=== PATIENT | male | born 1980 | race Caucasian/White ===

== ENCOUNTER 2018-02-13 13:59 | Emergency (ER) | payer SELFPAY ==
[2018-02-13 14:15] VITALS: BP 145/90
[2018-02-13] MEDS ORDERED: DIPH/PERTUSS(ACELL)/TETANUS VAC/PF 0.5 ML SYR (>=10YO) IM ONE (14:36)
[2018-02-13] MEDS ORDERED: CEFAZOLIN 2 GM/D5W RTU 2 GM/50 ML RTUPB IV ONE (14:36)
[2018-02-13] MEDS ORDERED: MORPHINE SULFATE 10 MG/ML INJ IV ONE ×2 (14:37→16:14)
[2018-02-13] MEDS ORDERED: ONDANSETRON HCL INJ/PF 4 MG/2 ML SDV IV ONE (14:37)
--- NOTE | 2018-02-13 14:53 | ER Document Report ---
ED Medical Screen (RME) - General Chief Complaint: Hand Injury Stated Complaint: LEFT HAND INJURY Time Seen by Provider: 02/13/18 14:34 Mode of Arrival: Ambulatory Information source: Patient Notes: Patient accidentally sustained a left hand laceration while walking this afternoon. He cannot remember the last time he got a tetanus shot. Patient is complaining of pain in the left hand. I have greeted and performed a rapid initial assessment of this patient. A comprehensive ED assessment and evaluation of the patient, analysis of test results and completion of the medical decision making process will be conducted by additional ED providers. TRAVEL OUTSIDE OF THE [place] IN LAST 30 DAYS: No - Related Data Allergies/Adverse Reactions: No Known Allergies Allergy (Unverified 02/13/18 14:00) Past Medical History Renal/ Medical History: Denies: Hx Peritoneal Dialysis Physical Exam - Vital signs Vitals: Temp Pulse Resp BP Pulse Ox 98.0 F 59 L 18 145/90 H 100 02/13/18 14:13 02/13/18 14:13 02/13/18 14:13 02/13/18 14:13 02/13/18 14:13 Course - Vital Signs Vital signs: Temp Pulse Resp BP Pulse Ox 98.0 F 59 L 18 145/90 H 100 02/13/18 14:13 02/13/18 14:13 02/13/18 14:13 02/13/18 14:13 02/13/18 14:13
--- NOTE | 2018-02-13 15:43 | RADIOLOGY REPORT (SQ) ---
EXAM DESCRIPTION: HAND LEFT 3 VIEWS COMPLETED DATE/TIME: 02/13/2018 3:35 pm REASON FOR STUDY: pain COMPARISON: None. EXAM PARAMETERS: NUMBER OF VIEWS: Three views. TECHNIQUE: AP, lateral and oblique radiographic images acquired of the left hand. LIMITATIONS: None. FINDINGS: MINERALIZATION: Normal. BONES: No acute fracture or dislocation. No worrisome bone lesions. JOINTS: No effusions. SOFT TISSUES: Soft tissue injury along the thumb. No fb. OTHER: No other significant finding. IMPRESSION: No acute fracture. TECHNICAL DOCUMENTATION: JOB ID: [id number] [employer]- All Rights Reserved Reading location - IP/workstation name: [email or web address]
--- NOTE | 2018-02-13 16:08 | ER Document Report ---
HPI - HPI Pain Level: 4 - DERM Skin Color: Normal, Stephens Past Medical History - General Information source: Patient - Social History Smoking Status: Unknown if Ever Smoked Patient has suicidal ideation: No Patient has homicidal ideation: No Renal/ Medical History: Denies: Hx Peritoneal Dialysis Vertical Provider Document - INFECTION CONTROL TRAVEL OUTSIDE OF THE [place] IN LAST 30 DAYS: No Course - Vital Signs Vital signs: Temp Pulse Resp BP Pulse Ox 98.0 F 59 L 18 145/90 H 100 02/13/18 14:13 02/13/18 14:13 02/13/18 14:13 02/13/18 14:13 02/13/18 14:13
--- NOTE | 2018-02-13 16:15 | ER Document Report ---
ED Hand/Wrist Injury - General Chief Complaint: Hand Injury Stated Complaint: LEFT HAND INJURY Time Seen by Provider: 02/13/18 14:34 Mode of Arrival: Ambulatory Information source: Patient TRAVEL OUTSIDE OF THE [place] IN LAST 30 DAYS: No - Related Data Allergies/Adverse Reactions: No Known Allergies Allergy (Unverified 02/13/18 14:00) Past Medical History - General Information source: Patient - Social History Smoking Status: Unknown if Ever Smoked Patient has suicidal ideation: No Patient has homicidal ideation: No Renal/ Medical History: Denies: Hx Peritoneal Dialysis Physical Exam - Vital signs Vitals: Temp Pulse Resp BP Pulse Ox 98.0 F 59 L 18 145/90 H 100 02/13/18 14:13 02/13/18 14:13 02/13/18 14:13 02/13/18 14:13 02/13/18 14:13 Course - Vital Signs Vital signs: Temp Pulse Resp BP Pulse Ox 98.0 F 59 L 18 145/90 H 100 02/13/18 14:13 02/13/18 14:13 02/13/18 14:13 02/13/18 14:13 02/13/18 14:13
--- NOTE | 2018-02-13 16:20 | ER Document Report ---
ED Medical Screen (RME) - General Chief Complaint: Hand Injury Stated Complaint: LEFT HAND INJURY Time Seen by Provider: 02/13/18 14:34 Mode of Arrival: Ambulatory Information source: Patient Notes: 37 yo male with extensive laceation web space between left thumb and index finger. limited thumb movement due to pain. xray shows soft tissue injury only. pt in extreme pain will give more pain medication. May need orthopedic consult. Will have main side MD see pt. TRAVEL OUTSIDE OF THE [place] IN LAST 30 DAYS: No - Related Data Allergies/Adverse Reactions: No Known Allergies Allergy (Unverified 02/13/18 14:00) Past Medical History Renal/ Medical History: Denies: Hx Peritoneal Dialysis Physical Exam - Vital signs Vitals: Temp Pulse Resp BP Pulse Ox 98.0 F 59 L 18 145/90 H 100 02/13/18 14:13 02/13/18 14:13 02/13/18 14:13 02/13/18 14:13 02/13/18 14:13 Course - Vital Signs Vital signs: Temp Pulse Resp BP Pulse Ox 98.0 F 59 L 18 145/90 H 100 02/13/18 14:13 02/13/18 14:13 02/13/18 14:13 02/13/18 14:13 02/13/18 14:13
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
[2018-02-13] MEDS ORDERED: PIPERACILLIN/TAZOBACTAM 3.375 GM VIAL IV ONE (17:35)
[2018-02-13] MEDS ORDERED: OXYCODONE-ACETAMINOPHEN 5-325 MG TABLET PO ONE (17:46)
[2018-02-13] MEDS ORDERED: LIDOCAINE 1% INJ-PF (10 MG/ML) 30 ML SDV INJ ONE (17:48)
[2018-02-13] MEDS ORDERED: HYDROCODONE/ACETAMINOPHEN 5-325 MG (6 TAB/ER DISP) PO PRN (19:44)
== END 2018-02-13 20:05 | disposition home or self-care (01) ==
LOC: ER 13:59
PROC: 0HQGXZZ Repair Left Hand Skin, External Approach (ICD-10-PCS; principal; 2018-02-13)
DX: S61.412A Laceration without foreign body of left hand, initial encounter (principal); F17.210 Nicotine dependence, cigarettes, uncomplicated; V93.89XA Other injury due to other accident on board unspecified watercraft, initial encounter
CPT/HCPCS: 73130; 90715; 12042; J3490; J2270; J2405; J0690; J2543